=== PATIENT | male | born 1980 | race Caucasian/White ===

== ENCOUNTER 2023-08-28 15:38 | Emergency (ER) | payer OTHER, SELFPAY ==
[2023-08-28 15:41] VITALS: BP 147/112; PULSE 80; RESP 18; TEMP 36.6; O2SAT 97
--- NOTE | 2023-08-28 17:13 | PC.NURSE ---
1700-PATIENT PRESENTS TO INTAKE. STATES WOUND NOT BLEEDING AND DOES NOT NEED STITCHES. PATIENT STATES HE IS LEAVING. ADVISED PATIENT TO RETURN IF ANY CHANGES.
== END 2023-08-28 17:40 | disposition left against medical advice (07) ==
DX: S61.211A Laceration without foreign body of left index finger without damage to nail, initial encounter (principal); W27.8XXA Contact with other nonpowered hand tool, initial encounter
CPT/HCPCS: 99199

== ENCOUNTER 2024-04-06 15:42 | Emergency (ER) | payer OTHER, SELFPAY ==
[2024-04-06 15:52] VITALS: BP 126/76; PULSE 78; RESP 16; TEMP 36.6; O2SAT 99
--- NOTE | 2024-04-06 16:41 | ED.PEDFEVER ---
HPI - Pediatric Fever General Chief Complaint: Urogenital-Male Stated Complaint: Lower Back Pain/Uti Symptoms Mode of arrival: ambulatory Limitations: no limitations History of Present Illness HPI narrative: Patient presents with complaints of urinary frequency and burning that has been getting worse. Symptoms began about 3 days ago, reports some back pain at baseline that is not worsening. He is most concerned about how often he is getting up at night to urinate. He does admit that he does not drink water, drinks coffee all day. He denies any fever, chills, sweats. He denies any cuauhtemoc hematuria. Denies any discharge, denies any concern for STIs Related Data Home Medications Medication Instructions Recorded Confirmed amlodipine 5 mg-benazepril 10 mg 1 cap PO DAILY 04/06/24 04/06/24 capsule Allergies Allergy/AdvReac Type Severity Reaction Status Date / Time No Known Allergies Allergy Verified 04/06/24 16:12 Pediatric Review of Systems All systems ED: reviewed and negative except as stated Constitutional: Denies fever or chills Cardiovascular: Denies chest pain Respiratory: Denies cough, dyspnea or wheezing Gastrointestinal: Denies abdominal pain Genitourinary: Reports as per HPI, dysuria and polyuria; Denies testicular pain, testicular swelling or penile pain PMFSH Comments At the time of my signature, I reviewed and agree with the nursing past medical, surgical, social, and family history. There is no relevant family history pertinent to the patient complaint. Pediatric Exam General: Limitations: no limitations General appearance: well-appearing, well-hydrated and well-nourished Eye: Eye exam: Present normal appearance Expanded ENT Exam: Mouth exam pediatric: Present normal external inspection Respiratory: Respiratory exam: Present normal lung sounds bilaterally; Absent respiratory distress, wheezes, stridor or accessory muscle use Cardiovascular: Cardiovascular exam: Present regular rate and normal rhythm : Male exam: Present other (No CVA tenderness, no tenderness on palpation of bladder) Extremities Exam: Extremities exam: Present normal inspection Back Exam: Back exam: Present normal inspection Neurological Exam: Neurological exam: Present alert and oriented X3 Skin: Skin exam: Present warm, dry, intact and normal color Course Course Level of Care: Express Care Visit Vital Signs Vital signs: Vital Signs Temperature 98 F 04/06/24 15:52 Pulse Rate 78 04/06/24 15:52 Respiratory Rate 16 04/06/24 15:52 Blood Pressure 126/76 04/06/24 15:52 Pulse Oximetry 99 04/06/24 15:52 Temperature 98 F 04/06/24 15:52 Pulse Rate 78 04/06/24 15:52 Respiratory Rate 16 04/06/24 15:52 Blood Pressure 126/76 04/06/24 15:52 Pulse Oximetry 99 04/06/24 15:52 Reviewed Medical Decision Making MDM Narrative Medical decision making narrative: UA with no sign of infection. Reassuring physical exam. Discussed need for more water, less coffee. Patient verbalizes understanding. Follow-up with primary care provider. Emergency department for new or worse symptoms. Discharge instructions reviewed with parent/patient, as well as provided in writing per nursing staff. The instructions also include specific and strict return/GO TO THE ER as well as f/u information. All questions have been answered, and the parent/ patient deny any further questions with discharge and discharge plan. Some parts of this dictation were generated by voice recognition software and may contain typographical and/or grammatical inaccuracies. Medical Records Medical records reviewed: Yes I reviewed the external patient's medical records. Vital Signs Vital Signs: Vital Signs Temperature 98 F 04/06/24 15:52 Pulse Rate 78 04/06/24 15:52 Respiratory Rate 16 04/06/24 15:52 Blood Pressure 126/76 04/06/24 15:52 Pulse Oximetry 99 04/06/24 15:52 Temperature 98 F 04/06
[2024-04-06 16:52] LABS: EDUAAPPEAR Clear; EDUABILI Negative; EDUABLOOD Negative; EDUACOLOR1 Yellow; EDUAGLUCOSE Negative; EDUAKETONE Trace; EDUALEUKO Negative; EDUANITRATE Negative; EDUAPROTEIN Negative; EDUASPGRAVITY 1.025; EDUAUROBILI 0.2
== END 2024-04-06 17:00 | disposition home or self-care (01) ==
PROVIDERS: Emergency Provider Nurse Practitioner Family
DX: R30.0 Dysuria (principal); I10 Essential (primary) hypertension
CPT/HCPCS: 81003; 99202; G0463

== ENCOUNTER 2024-11-23 18:20 | Emergency (ER) | payer OTHER, SELFPAY ==
[2024-11-23 18:35] VITALS: BP 138/90; PULSE 66; RESP 17; TEMP 36.6; O2SAT 98
--- NOTE | 2024-11-23 18:56 | ED_ITS ---
HPI - Skin/Abscess/Foreign Bdy General Chief complaint: Skin/Abscess/Foreign Body Stated complaint: RASH Time Seen by Provider: 11/23/24 18:44 Source: patient and RN notes reviewed Mode of arrival: ambulatory Limitations: no limitations History of Present Illness HPI narrative: Patient presents today with a 10 day history of pruritic rash to the dorsums of his feet and right forearm. Symptoms began after he was working outside his home in the yard. He also reports some itching to the left flank for the past 3 days. He has tried hydrocortisone and calamine lotion without much relief and the itching does wake him up at night. Related Data Home Medications ?Medication ?Instructions ?Recorded ?Confirmed ?Last Taken ?Type amlodipine 5 mg-benazepril 10 mg 1 cap PO DAILY 04/06/24 04/06/24 Unknown History capsule tamsulosin 0.4 mg capsule mg PO 11/23/24 Unknown History Allergies Allergy/AdvReac Type Severity Reaction Status Date / Time iohexol (From contrast - CT, Allergy Severe Hives Verified 11/23/24 18:34 X-RAY) Review of Systems Review of Systems: CONSTITUTIONAL: Denies body aches, fever, chills, or sweats. EYES: Denies visual changes, redness, or discharge. ENT: Denies rhinorrhea, congestion, sore throat, or otalgia. CARDIOVASCULAR: Denies chest pain, palpitations, or edema. RESPIRATORY: Denies cough or dyspnea. GASTROINTESTINAL: Denies abdominal pain, nausea, vomiting, or diarrhea. GENITOURINARY: Denies dysuria or hematuria. SKIN: + pruritic rash MUSCULOSKELETAL: Denies back pain, joint pain, or myalgia. NEUROLOGIC: Denies headache, numbness, tingling, or weakness. PSYCH: Denies depression or anxiety. PMFSH Comments At time of signature, I have reviewed and agree with nursing past medical, surgical, social and family history unless otherwise noted. Please see nursing chart for further information. There is no relevant family history pertinent to the presenting complaint Exam Narrative: GENERAL: Well-appearing, well-nourished, and in no acute distress. HEAD: Normocephalic, atraumatic. EYES: EOMI. No redness or drainage. Conjunctivae normal. ENT: Mucous membranes pink and moist. NECK: Normal AROM. CHEST: No respiratory distress. EXTREMITIES: Bilateral feet: Clusters of erythematous tiny vesicles to the dorsums of the feet with satellite lesions. Tiny maculopapular lesions to the left forearm. Left lateral waist: Areas of erythema that are flat. No vesicles or papules noted. SKIN: Warm, dry, no rash. Capillary refill normal. Normal skin turgor. NEURO: No focal deficits. Alert and oriented x3. Gait steady. PSYCH: Normal affect. No signs of depression or anxiety. Course Course Level of Care: Express Care Visit Vital Signs Vital signs: Vital Signs Temperature 97.8 F 11/23/24 18:35 Pulse Rate 66 11/23/24 18:35 Respiratory Rate 17 11/23/24 18:35 Blood Pressure 138/90 11/23/24 18:35 Pulse Oximetry 98 11/23/24 18:35 Oxygen Delivery Room Air 11/23/24 18:35 Temperature 97.8 F 11/23/24 18:35 Pulse Rate 66 11/23/24 18:35 Respiratory Rate 17 11/23/24 18:35 Blood Pressure 138/90 11/23/24 18:35 Pulse Oximetry 98 11/23/24 18:35 Oxygen Delivery Room Air 11/23/24 18:35 Reviewed MDM - Skin/Abscess/Foreign Bdy MDM Narrative Medical decision making narrative: The rash on patient's feet is consistent with contact dermatitis. Will start on a prednisone taper due to long duration of his rash that does not seem to be improving. Patient agrees with plan. Anticipatory guidance given. Differential Diagnosis Differential diagnosis: Likely abscess of skin or subcutaneous tissue, viral exanthem, dermatophytosis, urticaria, cellulitis, eczema, insect bites, impetigo and contact dermatitis Critical Care Time Critical Care Time Critical Care Time: No Discharge Plan Discharge Clinical Impression: Contact dermatitis Qualifiers: Contact dermatitis type: unspecified Contact dermatitis trigger: unspecified trigger Qualified Code(s): L25.9 - Unspecified contact dermatitis, unspecified cause Patient Disposition: Home, Self-Care Condition: Stable Instructions: Contact Dermatitis (ED) Additional Instructions: Please take the prednisone as directed. You may take an antihistamine such as Zyrtec, Claritin, or Luisa for itching as well. Follow-up with your PCP in 1 week if symptoms do not seem to be improving. Your blood pressure was elevated above 120/80 today at Urgent Care. This puts you above the threshold for follow up. Please schedule a followup visit with your personal physician as soon as possible, for further evaluation and treatment. Even blood pressure exceeding 120/80 may indicate pre-hypertension. Patient Language: Micronesian Prescriptions: New prednisone 10 mg tablet See Rx Instructions .ROUTE .COMPLEX Qty: 42 0RF Rx Instructions: 5 tabs daily x3 days,then 4 tabs daily x3 days,then 3 tabs daily x3 days,then 2 tabs daily x3 days No Action amlodipine-benazepril 5-10 mg capsule 1 cap PO DAILY tamsulosin 0.4 mg capsule PO Follow-up/Referrals: Albino,Ariane [Other] Time of Disposition: 19:01
== END 2024-11-23 19:02 | disposition home or self-care (01) ==
PROVIDERS: Emergency Provider Nurse Practitioner
DX: L25.9 Unspecified contact dermatitis, unspecified cause (principal); I10 Essential (primary) hypertension; N40.0 Benign prostatic hyperplasia without lower urinary tract symptoms
CPT/HCPCS: 99213; G0463